=== PATIENT | male | born 1985 | race Caucasian/White ===

== ENCOUNTER 2024-04-20 08:53 | Emergency (ER) | payer OTHER, SELFPAY ==
[2024-04-20 08:56] VITALS: BP 114/71
--- NOTE | 2024-04-20 09:03 | ED.GENMED ---
History of Present Illness
General
Chief Complaint: Abdominal Pain
Source: patient
Exam Limitations: none
Time Seen by Provider: 04/20/24 09:02
Nursing documentation reviewed up to this point in time: agreed with
History of Present Illness
History of Present Illness:
38 yr old male with PMH of HHT (hereditary hemorrhagic telangiectasia) associate with nosebleeds only presents to the ER for right lower quadrant pain. Patient had right lower quadrant pain for the past 2 days. He reports this started Thursday
night. He does play also no in the shoveling a little but denies any injury. Pain has been mostly constant worse when he walks. He was mildly nauseous and slight decreased appetite but has not vomited. He was seen by urgent care and sent to the
ER to rule out appendicitis. He denies any radiation of pain. Denies any back pain groin pain testicle pain or swelling. He denies any difficulty urinating.
. Pt last ate/drank at 7 am this am
Past History
Past History
ED Past Medical History: None
Social History
Tobacco: Non-smoker
Personal: Single
Living: with family
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
Review of Systems
Review of Systems
Allergies reviewed?: Yes
All Other Systems: ROS reviewed and negative except as documented in HPI and ROS
Constitutional: Reports no symptoms; Denies fever, fatigue or chills
EENT: Reports no symptoms
ABD/GI: Reports abdominal pain and nausea; Denies vomiting, diarrhea or constipated
Phy Exam
General Physical Exam
General Presentation: no apparent distress
General age: appears stated age
General Skin: warm and dry
General Habitus: normal
General Mental: alert
General Hydration: appears well hydrated
Gastrointestinal Exam
Gastrointestinal Exam: normal bowel sounds, soft and other (tender rlq )
Neurological Exam
Neurological Exam: alert and oriented x3
Musculoskeletal Exam
Musculoskeletal Exam: full ROM
Skin Exam
Skin Exam: normal color and warm/dry
Psychiatric Exam
Psychiatric Exam: normal mood/affect
Course
Orders/Labs/Results
Orders:
Orders
04/20/24 09:05
IV Insert/Care/Rem.- Treatment PRN
0.9% Sodium Chloride 1000 ml [Nss] 1,000 ml IV BOLUS
04/20/24 09:16
Complete Blood Count/With Diff Urgent
Comprehensive Metabolic Panel Urgent
Lipase Urgent
04/20/24 09:17
CT Abd/pelvis W Iv Cont Urgent
Comment:
Reason For Exam: rlq pain
Abnormal Lab Results
04/20/24
09:16
Absolute Monos (auto) 0.8 H 10^3/uL
(0.1-0.6)
Monocytes % 11.7 H %
(1.7-9.3)
Creatinine 0.6 L mg/dL
(0.7-1.3)
Total Bilirubin 1.5 H mg/dl
(0.2-1.3)
AST 83 H U/L
(17-59)
ALT 58 H U/L
(0-50)
04/20/24 09:16
04/20/24 09:16
Vital Signs
Initial and Last Documented VS:
Initial Vital Signs
Temp Pulse Resp BP Pulse Ox
97.5 F 48 18 114/71 100
04/20/24 08:56 04/20/24 08:56 04/20/24 08:56 04/20/24 08:56 04/20/24 08:56
Last Documented Vital Signs
Temp Pulse Resp BP Pulse Ox
97.5 F 48 16 112/62 99
04/20/24 08:56 04/20/24 08:56 04/20/24 10:09 04/20/24 10:09 04/20/24 09:20
Personnel Assistant consulted with Physician
Personnel Assistant consulted with physician?: Yes
Name of Physician Consulted: Noh
MDM/Problems Addressed
Differential Diagnosis Includes:
no limited to appendicitis diverticulitis less likely hernia by obstruction constipation
MDM/Problems Addressed:
CAT scan shows focal area of fat stranding and anterior to the right colon likely either epiploic appendagitis or small omental infarct will DC with rest hydration and supportive care NSAIDs. Patient's labs unremarkable he is no acute distress
stable for discharge home. Patient's LFTs incidentally are mildly elevated patient. does not drink alcohol daily will have him follow-up with his family doctor for recheck. Patient in no acute distress does not want any Tylenol Motrin here in the
ER feeling well after go home.
*Radiology
Radiology exam reviewed: radiology read reviewed
*Pulse Oximetry
Patient hypoxic: no
*Critical Care Note
Total Time (30-74mins, 75-104mins- exclusive of procedures): Not Applicable
ED Attending Note
-
Portions of this chart may have been created with voice recognition software.� Occasional wrong word or��sound alike� substitutions may have occurred due to the inherent limitations of voice recognition software.
Discharge Plan
Departure
Patient Disposition: Home (Routine Discharge)
Date of Disposition: 04/20/24
Time of Disposition: 11:17
Patient with high blood pressure during this ER visit?: No
Condition: Fair
Covid-19: Not Applicable
Discharge Problem:
Abdominal pain
Instructions: Abdominal Pain
Prescriptions:
No Action
multivitamin Tablet
1 tab PO DAILY
Referrals:
Ambrose Osborne DO [Family Provider] -
Activity Restrictions/Additional Instructions:
As discussed your CAT scan is negative for appendicitis, symptoms are likely caused from epiploic appendagitis or small omental infarct as discussed. Be sure to get plenty of rest stay well-hydrated you may take ibuprofen for pain and symptoms.
Follow-up with your family doctor next of days for reevaluation return if any worsening of symptoms. Also as discussed your liver function tests are mildly elevated please have this rechecked by your family doctor.
Interventions
Interventions:
*Risk Screen - Suicide Last Done: 04/20/24 08:56
*General Assessment Last Done: 04/20/24 08:56
*Neglect/Abuse Screening Last Done: 04/20/24 08:56
ED- Fall Risk Assessment Last Done: 04/20/24 09:23
*ED COVID-19 Vaccine History Last Done: 04/20/24 09:02
[facility]-Atnmck-Gtrktpvqhb Assessment Last Done: 04/20/24 09:22
Discharge Date and Time
Print Language: BRITISH
[2024-04-20 09:10] VITALS: BMI 25.7
[2024-04-20 09:18] VITALS: BP 97/81
[2024-04-20 09:30] LABS: % Basophils 0.1 % (0-2); % Immature Granulocytes 0.3 % (0-0.5); % Lymphocytes 22.5 % (20.5-51.1); % Monocytes 11.7 % (1.7-9.3); % Neutrophils 64.4 % (42.2-75.2); Absolute Eosinophils 0.1 10^3/uL (0-0.7); Absolute Lymphocytes 1.5 10^3/uL (1.2-3.4); Absolute Monocytes 0.8 10^3/uL (0.1-0.6); Absolute Neutrophils 4.4 10^3/uL (1.4-6.5); Hemoglobin 14.9 g/dL (13.0-18.0); Mean Corp Hgb Conc. 33.9 g/dL (33.0-37.0); Mean Corpuscular Hgb 28.2 pg (27.0-31.0); Mean Corpuscular Volume 83.3 fL (80.0-94.0); Mean Platelet Volume 10.1 fL (7.4-10.4); Nucleated Red Blood Cells % 0 % (-); Platelet Count 202 10^3/uL (130-400); Red Blood Cell Count 5.28 10^6/uL (4.70-6.10); Red Cell Dist. Width 13.1 % (11.5-14.5); White Blood Cell Count 6.8 10^3/uL (4.8-10.8)
[2024-04-20] MEDS: NSS 1000 IV (09:31)
[2024-04-20 09:51] LABS: ALT (SGPT) 58 U/L (0-50); AST (SGOT) 83 U/L (17-59); Albumin 4.8 g/dl (3.5-5.0); Alkaline Phosphatase 64 U/L (38-126); Blood Urea Nitrogen 20 mg/dl (9-20); Calcium 9.1 mg/dl (8.4-10.2); Carbon Dioxide 26 mmol/L (22-30); Chloride 101 mmol/L (98-107); Estimated Creatinine Clearance > 125 ml/min; Glucose 91 mg/dl (70-99); Lipase 64 U/L (23-300); Potassium 4.5 mmol/L (3.5-5.1); Sodium 138 mmol/L (135-145); Total Bilirubin 1.5 mg/dl (0.2-1.3); Total Protein 7.3 g/dl (6.3-8.2); eGFR > 60.00
[2024-04-20 10:08] VITALS: BP 112/62
[2024-04-20 10:09] VITALS: BP 112/62
== END 2024-04-20 11:26 | disposition home or self-care (01) ==
LOC: EMR 08:53
PROVIDERS: Nurse Practitioner; EMERGENCY PHYSICIAN Emergency Medicine; FAMILY PHYSICIAN Family Medicine
DX: R10.31 Right lower quadrant pain (principal)
CPT/HCPCS: 99285; 96360; 96361; 74177; 80053; 83690; 85025; Q9967